=== PATIENT | male | born 1975 | race Caucasian/White ===

== ENCOUNTER 2022-04-05 21:54 | Observation (INO) ==
[2022-04-05 22:25] LABS: Basophils # 0.1 10*3/uL (0.0-0.2); Basophils % 0.7 % (0.0-0.8); Eosinophils # 0.3 10*3/uL (0.0-0.87); Eosinophils % 3.3 % (0.00-10.9); Hematocrit 44.4 VOL% (42.0-52.0); Hemoglobin 14.6 GM/DL (14.0-18.0); Immature Granulocytes % 0.2 %; Immature Granulocytes Absolute 0.02 #; Lymphocytes # 2.8 10*3/uL (1.4-4.0); Lymphocytes % 34.5 % (21.2-54.2); Mean Corpuscular HGB Conc 32.9 GM/DL (32-36); Mean Corpuscular Volume 86.4 FL (87-102); Mean Platelet Volume 10.1 FL (9.6-12.0); Monocytes # 0.6 10*3/uL (0.11-0.8); Monocytes % 7.8 % (1.7-12.7); Neutrophils % 53.5 % (38.7-73.9); Platelet Count 339 T/CUMM (130-400); Red Blood Count 5.14 MC/CUMM (3.8-5.5); Red Cell Distribution Width 13.2 % (9.3-17.3); White Blood Count 8.2 T/CUMM (4-12)
[2022-04-05 22:53] LABS: Alanine Aminotransferase 36 U/L (16-61); Alkaline Phosphatase 103 U/L (45-117); Aspartate Amino Transferase 22 U/L (0-37); Bilirubin,Total < 0.39 MG/DL (0.20-1.00); Blood Urea Nitrogen 11 MG/DL (7-18); Calcium 9.5 MG/DL (8.5-10.1); Carbon Dioxide 28 MMOL/L (21-32); Chloride 111 MMOL/L (98-107); Glucose 210 MG/DL (74-106); Osmolality,Calculated 290.8 MOS/KG (273-304); Potassium 3.8 MMOL/L (3.5-5.1); Sodium 144 MMOL/L (136-145); Total Protein 6.9 G/DL (6.4-8.2)
[2022-04-05] MEDS ORDERED: MORPHINE 2 MG/1 ML SYRINGE IV STA (23:00)
[2022-04-05] MEDS ORDERED: ASPIRIN 325 MG TABLET PO STA (23:00)
[2022-04-05] MEDS ORDERED: ONDANSETRON 4 MG/2 ML VIAL IV STA (23:00)
[2022-04-05] MEDS ORDERED: NITROGLYCERIN 2% OINT 1 INCH/GM PACK TOP STA (23:00)
[2022-04-05] MEDS ORDERED: hydrALAZINE 20 MG/1 ML VIAL IV STA (23:20)
[2022-04-05] MEDS ORDERED: hydrALAZINE 20 MG/1 ML VIAL ONE (23:20)
[2022-04-06 00:06] LABS: Risk Ratio 3.56; VLDL Cholesterol 46.6 MG/DL
[2022-04-06] MEDS ORDERED: guaiFENesin/DM ER 600-30 MG TABLET PO PRN (00:26)
[2022-04-06] MEDS ORDERED: diphenhydrAMINE CAP 25 MG CAPSULE PO PRN (00:26)
[2022-04-06] MEDS ORDERED: ZALEPLON 5 MG CAPSULE PO PRN (00:26)
[2022-04-06] MEDS ORDERED: ALBUTEROL/IPRATROPIUM 3 ML NEB RESP TX PRN (00:26)
[2022-04-06] MEDS ORDERED: NICOTINE 21 MG/24 HR PATCH TRANSDERM PRN (00:26)
[2022-04-06] MEDS ORDERED: hydrALAZINE 20 MG/1 ML VIAL IV PRN (00:26)
[2022-04-06] MEDS ORDERED: ONDANSETRON 4 MG/2 ML VIAL IV PRN (00:26)
[2022-04-06] MEDS ORDERED: hydrALAZINE 20 MG/1 ML VIAL IV STA (00:45)
[2022-04-06] MEDS: MORPHINE 2 MG/1 ML SYRINGE IV PRN ×2 (01:03→07:38)
[2022-04-06 02:11] LABS: Mucus,Urine Occasional /LPF (Occasional); RBC,Urine 9 /HPF (0-4); Squamous Epithelial Cell,Urine Occasional /HPF (0-10); Urine Appearance Clear (Clear); Urine Color Yellow (Yellow)
[2022-04-06 02:12] LABS: Bilirubin,Urine Negative (Negative); Blood, Urine Trace mg/dL (Negative); Glucose,Urine (UA) Negative (Negative); Ketones,Urine Negative (Negative); Nitrite,Urine Negative (Negative); Protein,Urine Negative (Negative); Urine Specific Gravity >= 1.030 (1.001-1.035); Urine Urobilinogen 0.2 eU/dL (<2.0)
[2022-04-06 05:01] LABS: Basophils # 0.1 10*3/uL (0.0-0.2); Basophils % 0.6 % (0.0-0.8); Eosinophils # 0.3 10*3/uL (0.0-0.87); Eosinophils % 3.4 % (0.00-10.9); Hematocrit 41.8 VOL% (42.0-52.0); Hemoglobin 13.7 GM/DL (14.0-18.0); Immature Granulocytes % 0.4 %; Immature Granulocytes Absolute 0.03 #; Lymphocytes % 35.5 % (21.2-54.2); Mean Corpuscular HGB Conc 32.8 GM/DL (32-36); Mean Corpuscular Volume 85.5 FL (87-102); Mean Platelet Volume 9.9 FL (9.6-12.0); Monocytes # 0.7 10*3/uL (0.11-0.8); Monocytes % 8.7 % (1.7-12.7); Neutrophils % 51.4 % (38.7-73.9); Platelet Count 324 T/CUMM (130-400); Red Blood Count 4.89 MC/CUMM (3.8-5.5); Red Cell Distribution Width 13.5 % (9.3-17.3); White Blood Count 8.5 T/CUMM (4-12)
[2022-04-06 05:20] LABS: Calcium 9.4 MG/DL (8.5-10.1); Osmolality,Calculated 288.8 MOS/KG (273-304); Potassium 3.7 MMOL/L (3.5-5.1)
[2022-04-06 08:13] VITALS: BP 130/81
[2022-04-06] MEDS ORDERED: PANTOPRAZOLE 40 MG TABLET PO SCH (09:00)
[2022-04-06] MEDS ORDERED: LOSARTAN 50 MG TABLET PO SCH (09:00)
[2022-04-06] MEDS ORDERED: KETOROLAC 30 MG/1 ML VIAL IV PRN (11:11)
[2022-04-06] MEDS ORDERED: REGADENOSON 0.4 MG/5 ML SYRINGE IV ONE (11:28)
[2022-04-06] MEDS ORDERED: metFORMIN 500 MG TABLET PO SCH (17:00)
[2022-04-06] MEDS ORDERED: ROSUVASTATIN 20 MG TABLET PO SCH (21:00)
[2022-04-06] MEDS ORDERED: NON-FORMULARY MEDICATION (Fenofibrate Micronized 200 mg Capsule) PO SCH (21:00)
[2022-04-07] MEDS ORDERED: ASPIRIN CHEW 81 MG TABLET PO SCH (09:00)
[2022-04-07] MEDS ORDERED: NICOTINE 21 MG/24 HR PATCH TRANSDERM SCH (09:00)
== END 2022-04-06 16:42 | disposition home or self-care (01) ==
LOC: N.EDINP 21:54 → N.ED 21:54 → N.2W 04-06 01:50
PROVIDERS: ADMIT Emergency Medicine; ATTEND Emergency Medicine